=== PATIENT | male | born 1950 | race Caucasian/White ===

== ENCOUNTER 2017-04-04 09:30 | Emergency (ER) | payer OTHER, MEDICARE ==
[~2017-04-04] VITALS: Ht 175.3 cm; Wt 146.0 kg
[~2017-04-04 09:30] MED LIST: AMLODIPINE BESYL5 MG PO; ASPIRIN325 MG PO; Ambien PO; ELIQUIS5 MG PO; FOLTX TABLET1 EAC1 PO; GLUCOSAMINE &1 EAC1 PO; LIDOCAINE700 MG TD; LOPRESSOR25 MG PO; LOSARTAN POTASS50 MG PO; MEDROL DOSEPAK4 MG PO; Martinic PO; PRAVACHOL80 MG PO; PRILOSEC20 MG PO; PRILOSEC40 MG PO; RANITIDINE HCL150 M1 PO; RANITIDINE HCL150 MG PO; SIMVASTATIN80 MG PO; TOPAMAX25 MG PO; TOPIRAMATE25 MG PO; ZANAFLEX2 MG PO; ZOLPIDEM TARTRAT5 MG PO
[2017-04-04 10:07] LABS: EOSINOPHIL (%) 2.2 % (0-5); EOSINOPHIL COUNT 0.1 K/uL (0-0.3); HEMATOCRIT 40.6 % (38.0-50.0); IMMATURE GRANULOCYTE (%) 0.2 % (0.0-0.7); INSTRUMENT ABS NEUTROPHIL CT 2.4 K/uL; LYMPHOCYTE COUNT 1.7 K/uL (1.0-2.8); MCH 26.2 PG (29.0-34.0); MCHC 32.5 G/DL (30.0-36.0); MCV 80.6 FL (86-99); MEAN PLAT.VOLUME 10.2 uM^3 (9.0-12.4); MONOCYTE (%) 6.9 % (3-12); MONOCYTE COUNT 0.3 K/uL (0-0.8); NEUTROPHIL (%) 53.5 % (45-76); NEUTROPHIL COUNT 2.4 K/uL (1.8-6.4); PLATELET COUNT 173 K/uL (156-360); RBC DIS.WIDTH-SD 37.5 % (39-53); RED BLOOD COUNT 5.04 M/uL (4.00-5.50); WHITE BLOOD COUNT 4.5 K/uL (4.1-10.2)
[2017-04-04 10:36] LABS: CHLORIDE 108 mEq/L (99-109); POTASSIUM 3.9 mEq/L (3.7-5.4); SODIUM 142 mEq/L (136-147)
[2017-04-04 10:38] LABS: GLUCOSE 119 mg/dL (70-99)
[2017-04-04 10:39] LABS: ANION GAP 11 MEQ/L (2-14)
[2017-04-04 10:41] LABS: GFR ESTIMATE (CALCULATED) > 59 mL/min/
[2017-04-04 10:42] LABS: UREA NITROGEN (BUN) 14 mg/dL (9-23)
[2017-04-04 11:22] VITALS: BP 130/79
== END 2017-04-04 11:31 | disposition home or self-care (01) ==
LOC: EME 09:30
PROVIDERS: Emergency Medicine
DX: R04.0 Epistaxis (principal); I48.91 Unspecified atrial fibrillation; Z79.01 Long term (current) use of anticoagulants; I10 Essential (primary) hypertension; E78.5 Hyperlipidemia, unspecified; K21.9 Gastro-esophageal reflux disease without esophagitis; Z95.1 Presence of aortocoronary bypass graft; Z95.2 Presence of prosthetic heart valve; Z87.891 Personal history of nicotine dependence
CPT/HCPCS: 80048; 85025; 99281; 99284

== ENCOUNTER 2017-11-17 06:14 | Emergency (ER) | payer OTHER, MEDICARE ==
[~2017-11-17] VITALS: Ht 175.3 cm; Wt 106.5 kg
[2017-11-17 07:15] LABS: BASOPHIL (%) 0.8 % (0-1); EOSINOPHIL (%) 2.7 % (0-5); EOSINOPHIL COUNT 0.1 K/uL (0-0.3); HEMATOCRIT 40.5 % (38.0-50.0); HEMOGLOBIN 13.3 G/DL (12.5-16.6); IMMATURE GRANULOCYTE (%) 0.3 % (0.0-0.7); LYMPHOCYTE (%) 38.2 % (15-42); LYMPHOCYTE COUNT 1.4 K/uL (1.0-2.8); MCH 26.5 PG (29.0-34.0); MCHC 32.8 G/DL (30.0-36.0); MCV 80.8 FL (86-99); MONOCYTE (%) 7.8 % (3-12); MONOCYTE COUNT 0.3 K/uL (0-0.8); NEUTROPHIL (%) 50.2 % (45-76); NEUTROPHIL COUNT 1.9 K/uL (1.8-6.4); PLATELET COUNT 161 K/uL (156-360); RBC DIS.WIDTH-CV 13.1 % (11.8-14.6); RBC DIS.WIDTH-SD 37.8 % (39-53); RED BLOOD COUNT 5.01 M/uL (4.00-5.50); WHITE BLOOD COUNT 3.7 K/uL (4.1-10.2)
[2017-11-17 07:27] LABS: INTER. NORMALIZED RATIO 1.9
[2017-11-17 07:47] LABS: CHLORIDE 108 MEQ/L (99-109); CREATININE 1.1 MG/DL (0.6-1.3); GFR ESTIMATE (CALCULATED) > 59 mL/min/ (58.99-99999); GLUCOSE 115 mg/dL (70-99); POTASSIUM 3.9 MEQ/L (3.7-5.4); SODIUM 139 MEQ/L (136-147); UREA NITROGEN (BUN) 15 mg/dL (9-23)
[2017-11-17 10:17] VITALS: BP 146/84
== END 2017-11-17 10:17 | disposition home or self-care (01) ==
LOC: EME 06:14
PROVIDERS: Emergency Medicine
DX: I86.1 Scrotal varices (principal); N50.1 Vascular disorders of male genital organs; I48.91 Unspecified atrial fibrillation; Z95.1 Presence of aortocoronary bypass graft; Z95.2 Presence of prosthetic heart valve; Z79.01 Long term (current) use of anticoagulants; I10 Essential (primary) hypertension; E78.5 Hyperlipidemia, unspecified; Z87.891 Personal history of nicotine dependence
CPT/HCPCS: 80048; 85025; 85610; 99281; 99284